=== PATIENT | female | born 1985 | race Caucasian/White ===

== ENCOUNTER → 2018-02-22 | Outpatient (CLI) | payer MEDICAID, OTHER ==
[~2018-02-22] MED LIST: ACET-1600 PO; ARIP2TAB2 PO; ESCI20TA10 PO; IBUP-1223 PO; LACT1CAP35 PO; METF500T4 PO; MULT1TAB60 PO; NORE5TAB PO; SOLI5TAB2 PO; TEMA7.5C PO
== END | disposition home or self-care (01) ==
LOC: RAD 08:26
PROVIDERS: ATTEND Family Medicine
DX: E04.2 Nontoxic multinodular goiter (principal)
CPT/HCPCS: 76536

== ENCOUNTER → 2018-03-03 | Outpatient (CLI) | payer MEDICAID, OTHER | LOC: RAD 07:32 | PROVIDERS: ATTEND Family Medicine | DX: E04.1 Nontoxic single thyroid nodule (principal) | CPT/HCPCS: 78013; A9516 ==

== ENCOUNTER 2020-06-27 14:03 | Emergency (ER) | payer MEDICAID ==
[~2020-06-27] VITALS: Ht 165.1 cm; Wt 101.5 kg
[~2020-06-27 14:03] MED LIST changes: +ALPR0.5T7 PO; +DULO20CA45 PO; +LEVO25TA4 PO; +LISI2.5T PO; +METF500T17 PO; -METF500T4 PO; +MULT-449 PO; -MULT1TAB60 PO; +OXYB5TAB10 PO
--- NOTE | 2020-06-27 16:10 | NUR ---
MANDREL PRESS HAND: PT TO ROOM FROM AUTUMN, ZAHEER MCMULLEN. WHEN REQUESTED TO PROVIDED URINE SPECIMAN, STATED "NO"
--- NOTE | 2020-06-27 16:57 | NUR ---
REPORTED TO SHANNON GRUBER.
--- NOTE | 2020-06-27 17:04 | NUR ---
PT HERE FROM [facility] FOR RIGHT FLANK PAIN THAT STARTED LAST NIGHT. PT UP TO BATHROOM FOR UA.
[2020-06-27] MEDS ORDERED: ONDANSETRON 2MG/ML, 2ML ONE (17:23)
[2020-06-27] MEDS ORDERED: MORPHINE SULFATE 4 MG/ML, 1ML ONE ×2 (17:23→18:46)
[2020-06-27 17:24] LABS: MICROSCOPIC AUTO
[2020-06-27] MEDS: MORPHINE SULFATE 4 MG/ML, 1ML IVPush PRN ×2 (17:26→18:47)
[2020-06-27] MEDS ORDERED: ONDANSETRON 2MG/ML, 2ML IVPush ONE (17:30)
[2020-06-27] MEDS ORDERED: SODIUM CHLORIDE FLUSH 10ML SYR IVF ONE (17:30)
[2020-06-27] MEDS ORDERED: SODIUM CHLORIDE 0.9% 1,000ML IVBOLUS ONE (17:30)
--- NOTE | 2020-06-27 17:32 | NUR ---
PIV PLACED PT MEDICATED FOR PAIN. VSS. FLUIDS RUNNING. CALL LIGHT IN REACH
[2020-06-27 17:39] LABS: BASOPHILS # (AUTO) 0.06 x10^3/uL (0-0.1); BASOPHILS % (AUTO) 1 % (0-1); EOSINOPHILS # (AUTO) 0.25 x10^3/uL (0-0.4); EOSINOPHILS % (AUTO) 3 % (1-7); LYMPHOCYTES # (AUTO) 2.42 x10^3/uL (1-3.4); LYMPHOCYTES % (AUTO) 33 % (22-44); MD NO; MEAN CORPUSCULAR HEMOGLOBIN 28.8 pg (27.0-34.8); MEAN CORPUSCULAR HGB CONC 33.2 g/dL (32.4-35.8); MEAN CORPUSCULAR VOLUME 86.7 fL (80-100); MEAN PLATELET VOLUME 8.8 fL (7.4-10.4); MONOCYTES # (AUTO) 0.58 x10^3/uL (0.2-0.8); MONOCYTES % (AUTO) 8 % (2-9); NEUTROPHILS # (AUTO) 4.11 x10^3/uL (1.8-6.8); NEUTROPHILS % (AUTO) 55 % (42-75); PLATELET COUNT 262 x10^3/uL (130-400); RED BLOOD COUNT 5.24 x10^6/uL (3.82-5.3); RED CELL DISTRIBUTION WIDTH 14.3 % (9.6-15.2)
[2020-06-27 17:45] LABS: ALANINE AMINOTRANSFERASE 50 U/L (12-78); ANION GAP 7 mmol/L (5-15); CALCIUM 9.1 mg/dL (8.5-10.1); CHLORIDE 106 mmol/L (98-107)
[2020-06-27 17:48] LABS: ALKALINE PHOSPHATASE 64 U/L (45-117); BILIRUBIN,TOTAL 0.6 mg/dL (0.2-1.0); CREATININE 0.87 mg/dL (0.55-1.02)
--- NOTE | 2020-06-27 18:50 | NUR ---
BREAK RN: PT RESTING ON ALBERTO. VSS. MEDICATED PER JAN.
[2020-06-27 19:44] VITALS: BP 136/80
== END 2020-06-27 19:46 | disposition home or self-care (01) ==
LOC: ED 18:32
DX: N23 Unspecified renal colic (principal); R11.0 Nausea; R31.9 Hematuria, unspecified; I10 Essential (primary) hypertension
CPT/HCPCS: 36415; 74176; 80053; 81001; 85025; 96361; 96374; 96375; 96376; 99284; J2270; J2405; J7030